=== PATIENT | male | born 1990 | race Caucasian/White ===

== ENCOUNTER 2019-03-09 14:42 | Emergency (ER) | payer BC ==
[2019-03-09 15:16] VITALS: TEMP 97.8; O2SAT 95
--- NOTE | 2019-03-09 16:39 | ED.PDOC ---
History of Present Illness - General Chief Complaint: Respiratory Problem Stated Complaint: congestion/rubbing in chest Time Seen by Provider: 03/09/19 16:36 Source: patient Exam Limitations: no limitations - History of Present Illness Comments: José Luis Cervantes 28 y/o male came to ER with slightly productive cough and nasal congestion for 2 weeks.No fever,chills,weight loss or ill contact.Seen Md 2 weeks ago prescribed antibiotics but not better.Denies chronic medical problem. Timing/Duration: week - 2 Cough Quality/Degree: dry cough Possible Cause: no prior episodes Improving Factors: nothing Worsening Factors: nothing Associated Symptoms: other - see hpi Allergies/Adverse Reactions: Allergies NO KNOWN ALLERGY Allergy (Verified 03/09/19 15:16) Home Medications: Ambulatory Orders predniSONE 20 mg PO DAILY 7 Days #7 tab 03/09/19 Review of Systems - Review of Systems EENTM: States: see HPI, nose congestion Respiratory: States: see HPI, cough All other Systems: Reviewed and Negative, No Change from Baseline Past Medical History (General) - Patient Medical History Hx Stroke: No Hx Congestive Heart Failure: No Hx Diabetes: No Surgical History: no surgical history - Vaccination History Hx Influenza Vaccination: No - Social History Hx Tobacco Use: Yes Family Medical History - Family History Father Family History: Unknown Living Status: Unknown Physical Exam - Physical Exam General Appearance: Alert, Comfortable, No apparent distress Eye Exam: bilateral normal ENT Exam: normal ENT inspection, hearing grossly normal, TMs normal, pharynx normal, nasal congestion - left >right Neck: normal inspection Respiratory: lungs clear, normal breath sounds Cardiovascular/Chest: normal peripheral pulses, regular rate, rhythm, no murmur Gastrointestinal/Abdominal: soft Extremity: normal inspection Neurologic: alert, oriented x 3 Skin Exam: normal color, warm/dry Progress - Progress Progress: 03/09/19 16:41 Vital Signs - 24 hr 03/09/19 03/09/19 15:12 15:23 Temperature 97.8 F Pulse Rate [ 105 H Left Brachial] Respiratory 20 20 Rate Blood Pressure 145/103 [Left Arm] O2 Sat by Pulse 95 Oximetry Departure - Departure Clinical Impression: Reactive airway disease that is not asthma Time of Disposition: 17:06 Disposition: Discharge to Home or Self Care Condition: Good Departure Forms: ED Discharge - Pt. Copy, Patient Portal Self Enrollment Prescriptions: predniSONE 20 mg PO DAILY 7 Days #7 tab Home Medications: Ambulatory Orders predniSONE 20 mg PO DAILY 7 Days #7 tab 03/09/19 Additional Instructions: May take Zyrtec-10 mg one tablet daily and Mucinex DM one tablet am/pm for cough (over the counter)
--- NOTE | 2019-03-09 16:51 | RAD ---
EXAM DESCRIPTION: Chest,2 Views CLINICAL HISTORY: 28 years Male rubbing feeling in chest COMPARISON: None TECHNIQUE: Two view study of the chest was performed. FINDINGS: Cardiac size is within normal limits. Central vessels are not increased. No infiltrates or effusions seen. No consolidation. No pneumothorax. Artifact overlying inferolateral left hemithorax. IMPRESSION: No active disease. Electronically signed by: Nayeli Chaidez MD 03/09/2019 4:49 PM CDT
[2019-03-09 17:15] VITALS: BP 131/96
== END 2019-03-09 17:15 | disposition home or self-care (01) ==
LOC: ER 14:42
DX: J98.8 Other specified respiratory disorders (principal)